=== PATIENT | male | born 1995 | race Asian ===

== ENCOUNTER 2018-09-19 20:10 | Emergency (ER) | payer OTHER ==
--- NOTE | 2018-09-19 21:29 | ED ---
Respiratory - HPI Summary HPI Summary: 23 year old presents with right sided pneumothoracic [facility] since yesterday. he had a left sided spontaneous pneumo 7 years ago the required a chest tube. no cough or fever. [facility] xray [facility] shows 30% right pneumo. denies any other symptoms. no injury. has no medical conditions. no hx of asthma or copd. is not a smoker. - History of Current Complaint Chief Complaint: EDShortnessOfBreath Stated Complaint: DIFFICULTY BREATHING Time Seen by Provider: 09/19/18 21:07 Pain Intensity: 0 Sputum Amount: None - Allergy/Home Medications Allergies/Adverse Reactions: Allergies Allergy/AdvReac Type Severity Reaction Status Date / Time No Known Allergies Allergy Verified 09/19/18 20:17 Home Medications: Home Medications NK [No Home Medications Reported] 09/19/18 [History Confirmed 09/19/18] PMH/Surg Hx/FS Hx/Imm Hx Endocrine/Hematology History: Denies: Hx Anticoagulant Therapy Respiratory History: Reports: Other Respiratory Problems/Disorders - pneumothoracic Denies: Hx Asthma Infectious Disease History: No Infectious Disease History: Denies: Traveled Outside the [place] in Last 30 Days - Social History Alcohol Use: None Substance Use Type: Reports: None Smoking Status (MU): Never Smoked Tobacco Review of Systems Negative: Fever Negative: Chest Pain Positive: Shortness Of Breath. Negative: Cough All Other Systems Reviewed And Are Negative: Yes Physical Exam Triage Information Reviewed: Yes Vital Signs On Initial Exam: Initial Vitals Temp Pulse Resp BP Pulse Ox 97.6 F 67 16 127/74 98 09/19/18 20:12 09/19/18 20:12 09/19/18 20:12 09/19/18 20:12 09/19/18 20:12 Vital Signs Reviewed: Yes Appearance: Positive: Well-Appearing Skin: Positive: Warm, Dry Head/Face: Positive: Normal Head/Face Inspection Eyes: Positive: Normal, Conjunctiva Clear ENT: Positive: Pharynx normal Respiratory/Lung Sounds: Positive: Breath Sounds Present, Decreased Breath Sounds - right Cardiovascular: Positive: Normal, RRR Abdomen Description: Positive: Nontender, Soft Bowel Sounds: Positive: Present Musculoskeletal: Positive: Normal Neurological: Positive: Normal Psychiatric: Positive: Normal Diagnostics - Vital Signs Vital Signs Temp Pulse Resp BP Pulse Ox 09/19/18 21:00 72 99 09/19/18 20:59 71 135/81 100 09/19/18 20:57 76 95 09/19/18 20:12 97.6 F 67 16 127/74 98 - Laboratory Result Diagrams: 09/19/18 21:36 09/19/18 21:36 Lab Statement: Any lab studies that have been ordered have been reviewed, and results considered in the medical decision making process. - Radiology chest Radiology Interpretation Completed By: ED Physician Summary of Radiographic Findings: pneumo Re-Evaluation - Re-Evaluation First Eval Re-Evaluation Time: 22:50 Comment: minimial pain. agrees with plan to go, o2 stat is 100. Disposition - Course Course Of Treatment: 23 year old presents with right sided pneumothoracic since yesterday. he had a left sided spontaneous pneumo 7 years ago the required a chest tube. chest xrays shows 30% right pneumo. on exam decreased breath sound heard on right. 02 stat 98-100. spoke with dr galeas who wants a repeat xray which still shows a pneumo. spoke again with dr galeas at 20:45am and dr galeas says 3 hour xray same as previous so can send home to follow up tomorrow. will have call office for xray tomorrow morning. gave strict return precautions. patient understand and agrees with plan. - Differential Dx - Cardiopulmonary Differential Diagnoses - Cardiopulmonary: Bronchitis, Chest Wall Pain, Pneumothorax - Diagnoses Provider Diagnoses: Pneumothorax on right Discharge - Sign-Out/Discharge Documenting (check all that apply): Patient Departure Patient Received Moderate/Deep Sedation with Procedure: No - Discharge Plan Condition: Stable Disposition: HOME Patient Education Materials: Spontaneous Pneumothorax (ED) Referrals: King Galeas MD [Medical Doctor] - Additional Instructions: call office at 8am dr Galeas, ask for chest xray order and appointment afterwards Take Tylenol or ibuprofen every 6 hours as needed for pain Return to ED if develop any worsening chest pain or shortness of breath or any new or worsening symptoms - Billing Disposition and Condition Condition: STABLE Disposition: Home
[2018-09-19 21:42] LABS: ABS Basophils 0 10^3/ul (0-0.2); ABS Eosinophils 0.1 10^3/ul (0-0.6); ABS Monocytes 0.5 10^3/ul (0-0.8); ABS Neutrophils 4.7 10^3/ul (1.5-7.7); ABS Nucleated RBC 0 10^3/ul; Hematocrit 46 % (42-52); Hemoglobin 15.2 g/dl (14.0-18.0); Lymphocyte % 27.3 %; Mean Corpuscular HGB Conc 33 g/dl (31-36); Mean Corpuscular Hemoglobin 31 pg (27-31); Mean Corpuscular Volume 92 fL (80-94); Mean Platelet Volume 8.4 fL (7.4-10.4); Nucleated Red Blood Cells % 0.1; Platelet Count 266 10^3/ul (150-450); Red Blood Count 4.97 10^6/ul (4.00-5.40); Red Cell Distribution Width 13 % (10.5-15); White Blood Count 7.4 10^3/ul (3.5-10.8)
[2018-09-19 21:51] LABS: INR 1.02 (0.77-1.02)
[2018-09-19 22:02] LABS: Albumin 4.9 g/dL (3.2-5.2); Albumin/Globulin Ratio 1.6 (1-3); BUN/Creatinine Ratio 13.5 (8-20); Calcium 9.9 mg/dL (8.6-10.3); EGFR African American 117.5 (>60); EGFR Non-African American 97.1 (>60); Potassium 4.3 mmol/L (3.5-5.0); Total Protein 7.9 g/dL (6.4-8.9)
[2018-09-19 23:03] VITALS: BP 116/68
== END 2018-09-19 23:07 | disposition home or self-care (01) ==
LOC: ED 20:10
DX: J93.11 Primary spontaneous pneumothorax (principal)
CPT/HCPCS: 36415; 71046; 80053; 85025; 85610; 99283

== ENCOUNTER 2018-09-27 13:22 | Inpatient (IN) | payer OTHER ==
[~2018-09-27 13:22] MED LIST: Buffered Lidocaine 1% SYRIN* 1 ML/SYRINGE INTRADERM ONE; Lactated Ringers 1000 ML Bag* 1,000 ML IV SCH; Sodium Citrate/Citric Acid* 15 ML UDC PO ONE
--- OUTSIDE RECORDS SUMMARY | 2018-09-27 13:25 | XMS REPORT | Continuity of Care Document ---
:1995 External Reference #:[id number] Author Name Radha Frank Care Team Providers Name Role Phone King Valles DO [facility] Care Team Information Director Camp Unavailable Payers Date Identification Numbers Payment Provider Subscriber Policy Number: [id number] [employer] Student [employer] Gerald Correa PayID: [id number] [address] [place] [address] Advance Directives Description No Information Available Problems Description No Information Family History Description No Information Available Social History Type Date Description Comments Sex Unknown Marital Status Single Lives With Roommate Occupation Student ETOH Use Rarely consumes alcohol Tobacco Use Start: Unknown Patient has never smoked Recreational Drug Use Denies Drug Use Smoking Status Reviewed: 09/20/18 Patient has never smoked Exercise Type/Frequency Exercises regularly Allergies, Adverse Reactions, Alerts Description No Known Drug Allergies Medications Description No Active Medications Immunizations Description No Information Available Vital Signs Date Vital Result Comment 09/20/2018 10:55am Height 71 inches 5'11" Weight 165.00 lb Heart Rate 68 /min BP Systolic 115 mmHg BP Diastolic 80 mmHg Respiratory Rate 16 /min Body Temperature 96.8 F BMI (Body Mass Index) 23.0 kg/m2 Results Description No Information Available Procedures Description No Information Available Encounters Description No Information Available Plan of Treatment 09/20/2018 - King Fox MD, [id number] Primary spontaneous pneumothoraxFollow [facility]ac[facility]
--- OUTSIDE RECORDS SUMMARY | 2018-09-27 13:25 | XMS REPORT | Continuity of Care Document ---
:1995 External Reference #:[id number] Author Name Radha Frank Care Team Providers Name Role Phone King Valles DO [facility] Care Team Information Project Safety Manager Unavailable Payers Date Identification Numbers Payment Provider Subscriber Policy Number: [id number] [employer] Student [employer] Gerald Correa PayID: [id number] [address] [place] [address] Advance Directives Description No Information Available Problems Description No Information Family History Description No Information Available Social History Type Date Description Comments Sex Unknown Marital Status Single Lives With Roommate Occupation Student ETOH Use Rarely consumes alcohol Tobacco Use Start: Unknown Patient has never smoked Recreational Drug Use Denies Drug Use Smoking Status Reviewed: 09/24/18 Patient has never smoked Exercise Type/Frequency Exercises regularly Allergies, Adverse Reactions, Alerts Description No Known Drug Allergies Medications Description No Active Medications Immunizations Description No Information Available Vital Signs Date Vital Result Comment 09/24/2018 11:44am Heart Rate 68 /min BP Systolic 120 mmHg BP Diastolic 80 mmHg Respiratory Rate 16 /min Body Temperature 97.5 F 09/20/2018 10:55am Height 71 inches 5'11" Weight 165.00 lb Heart Rate 68 /min BP Systolic 115 mmHg BP Diastolic 80 mmHg Respiratory Rate 16 /min Body Temperature 96.8 F BMI (Body Mass Index) 23.0 kg/m2 Results Description No Information Available Procedures Description No Information Available Encounters Description No Information Available Plan of Treatment Future Appointment(s):09/25/2018 10:30 am - Ruben Ortega M.D. at [facility]09/24/2018 - King Fox MD, [id number] Primary spontaneous pneumothoraxFollow up:monday with Dr Ortega
--- OUTSIDE RECORDS SUMMARY | 2018-09-27 13:25 | XMS REPORT | Continuity of Care Document ---
:1995 External Reference #:[id number] Author Name Radha Frank Care Team Providers Name Role Phone King Valles DO [facility] Care Team Information Chucking Machine Set Up Operator Unavailable Payers Date Identification Numbers Payment Provider Subscriber Policy Number: [id number] [employer] Student [employer] Gerald Correa PayID: [id number] [address] [place] [address] Advance Directives Description No Information Available Problems Description No Information Family History Description No Information Available Social History Type Date Description Comments Sex Unknown Marital Status Single Lives With Roommate Occupation Student ETOH Use Rarely consumes alcohol Tobacco Use Start: Unknown Patient has never smoked Recreational Drug Use Denies Drug Use Smoking Status Reviewed: 09/25/18 Patient has never smoked Exercise Type/Frequency Exercises regularly Allergies, Adverse Reactions, Alerts Description No Known Drug Allergies Medications Description No Active Medications Immunizations Description No Information Available Vital Signs Date Vital Result Comment 09/25/2018 10:34am Heart Rate 60 /min Respiratory Rate 16 /min Body Temperature 96.9 F 09/24/2018 11:44am Heart Rate 68 /min BP [...] Available Procedures Description No Information Available Encounters Type Date Location Provider Dx Diagnosis Office Visit 09/20/2018 Surgical King Fox, J93.11 Primary spontaneous 11[facility] pneum[facility] Plan of Treatment Future Appointment(s):09/27/2018 3:00 pm - Ruben Ortega M.D. at [facility]09/25/2018 - Ruben Ortega M.D.J93.11 Primary spontaneous pneumothoraxReferral:Ruben Ortega MD, Surgery,GeneralFollow up:OR
[2018-09-27] MEDS ORDERED: Sodium Citrate/Citric Acid* 15 ML UDC ONE (13:42)
[2018-09-27] MEDS ORDERED: ceFAZolin 2 GM PREMIX in ORs 2 GM/50 ML BAG IVPB ONE (13:42)
[2018-09-27] MEDS ORDERED: Buffered Lidocaine 1% SYRIN* 1 ML/SYRINGE INTRADERM ONE (14:04)
[2018-09-27] MEDS ORDERED: Bupivacaine 0.25% W/EPI* 10 ML SDV ONE (15:46)
[2018-09-27] MEDS ORDERED: Lidocaine 2% PF * 5 ML VIAL ONE (15:55)
[2018-09-27] MEDS ORDERED: Propofol* 10 MG/ML 20 ML BTL ONE ×2 (15:55→17:16)
[2018-09-27] MEDS ORDERED: fentaNYL* 50 MCG/ML 2 ML VIAL (100 MCG VIAL) ONE ×3 (15:55→17:24)
[2018-09-27] MEDS ORDERED: Midazolam* 1 MG/ML 2 ML VIAL (2 MG) ONE (15:55)
[2018-09-27] MEDS ORDERED: Rocuronium* 10 MG/ML VIAL ONE (15:56)
[2018-09-27] MEDS ORDERED: Benzocaine/Butamben/Tetracain (CETACAINE - SINGLE USE) 5 gm TOPICAL ONE (16:14)
[2018-09-27] MEDS ORDERED: Phenylephrine IV* 40 MCG/ML 10 ML SYRINGE ONE (16:51)
[2018-09-27] MEDS ORDERED: Ketorolac INJ* 30 MG/ML 1 ML VIAL ONE (17:00)
[2018-09-27] MEDS ORDERED: Ondansetron INJ* 2 MG/ML VIAL IV PRN (17:19)
[2018-09-27] MEDS ORDERED: HYDROmorphone INJ1* 1 MG/ML SYRINGE IV SLOW PU PRN (17:26)
[2018-09-27] MEDS: fentaNYL* 50 MCG/ML 2 ML VIAL (100 MCG VIAL) IV PRN ×2 (17:30→18:50)
[2018-09-27] MEDS ORDERED: Naloxone* 0.4 MG/ML 1 ML VIAL IV PRN (17:39)
[2018-09-27] MEDS ORDERED: Lactated Ringers 1000 ML Bag* 1,000 ML IV SCH (18:00)
[2018-09-27] MEDS: Ketorolac INJ* 30 MG/ML 1 ML VIAL IV SCH (20:13)
--- NOTE | 2018-09-27 23:17 | OP ---
CC: Ruben Ortega MD; [facility] OPERATIVE REPORT: DATE OF OPERATION: 09/27/18 DATE OF : 89 SURGEON: Ruben Ortega MD SHARE HOLDER: None. ANESTHESIOLOGIST: Dr. Recinos. ANESTHESIA: General anesthetic, local infiltration by the surgeon. PRE-OP DIAGNOSIS: Right pneumothorax. POST-OP DIAGNOSIS: Right pneumothorax. OPERATIVE PROCEDURE: Right video thoracoscopy with bleb resection and pleurodesis. DESCRIPTION OF PROCEDURE: The patient was supine on the operating room table. After adequate general anesthetic, compression stockings, Phyllis Hugger warmer, and intravenous antibiotics, double lumen int ubation was accomplished by Anesthesia. I performed bronchoscopy to confirm placement of the tube. He was then turned to the lateral decubitus position with the right chest up. The chest was prepped with antiseptic and draped in a sterile fashion. He had been appropriately padded and protected and secured to the table ahead of time. Axillary roll was then used. Proximally, the seventh interspace was entered after local anesthetic and a Thoracoport was placed. Inspection revealed no underlying injury. 5 mm sites were placed anterior and posterior to this. In spection of the pleural space revealed normal middle and lower lobes. The fissures were normal. The apex of the upper lobe had some chronic scarring and fibrosis consistent with the chronic bleb disea se. This area was stapled off using 60-mm reinforced purple load of the Endo JEFF stapler. Specimen was labeled apex of right lung and sent in formalin for pathologic evaluation. Mechanical pleurodesi s was carried out using the Bovie scratch pad, which was then retrieved. Everything was in good cond ition. Intercostal blocks were carried out under direct vision with about 2 to 3 mL of 0.25% Marcaine at each site over about 6 sites. A 32-Panamanian chest tube was placed at the larger incision, sutured at the skin using 2-0 Prolene. The small incisions were closed with 5-0 Vicryl followed by Steri-Str ips. Bulky gauze dressing was placed and the chest tube was hooked to a Pleur-evac suction and he wa s brought to Recovery. He tolerated the procedure well. There were no complications. Drain was 32- Panamanian chest tube. Sponge and instruments counts correct. Estimated blood loss was about 30 mL. [id number]/[facility] #: [id number]
[2018-09-28] MEDS: Ketorolac INJ* 30 MG/ML 1 ML VIAL IV SCH ×4 (01:29→20:33)
[2018-09-28] MEDS ORDERED: Lactated Ringers 1000 ML Bag* 1,000 ML IV SCH (08:22)
[2018-09-28] MEDS: Docusate CAP* 100 MG PO SCH (08:25)
--- NOTE | 2018-09-28 08:25 | PN ---
Progress Note - Progress Note Date of Service: 09/28/18 Note: POD#1 S/P VATS Afeb, VS OK Akhil po's, Voiding CT level 220 ml, serosang. Pain control good. CT no air leak Breathing easy, unlabored Dressings clean D/C suction from pleurevac await decreased drainage KVO
[2018-09-28] MEDS: oxyCODONE/Acetamin 5/325 MG* TAB PO PRN (11:35)
--- NOTE | 2018-09-28 15:14 | PN ---
Progress Note - Progress Note Date of Service: 09/28/18 Note: S: POD#1 after VATS with bleb resection. He reports pain at chest tube site which has required pain medication but otherwise is doing well. He is ambulating to the bathroom and tolerating normal diet without any nausea or vomiting. Patient denies chest pain other than at the tube site, shortness of breath or cough. Pleurevac suction was discontinued this morning and tube continues to drain. O: Vital Signs - 12 hr Temp Pulse Resp BP Pulse Ox 09/28/18 13:44 18 09/28/18 11:35 18 09/28/18 11:20 97.6 F 65 16 117/57 100 09/28/18 08:00 16 100 09/28/18 07:40 97.5 F 80 16 111/49 100 09/28/18 04:07 98.4 F 77 16 106/45 98 Intake & Output 09/28/18 09/28/18 09/28/18 06:59 14:59 22:59 Intake Total 1250 1355 Output Total 1660 1463 Balance -410 -108 PE: General: Sitting up in bed comfortably in no acute distress Heart: Regular rate and rhythm, S1 S2, no murmur Lungs: Dressings clean dry and in tact without erythema or swelling. 240 cc of serosanguineous fluid collected from chest tube, no air leak. Lungs clear to auscultation bilaterally Abdomen: Soft, non-distended, non-tender Extremities: No swelling A/P: Progressing as expected after VATS with bleb resection for spontaneous pneumothorax with stable vital signs and pain controlled with percocet and toradol. -Continue chest tube to water seal while awaiting decreased drainage -Continue pain management as ordered KELSEY MendesS
[2018-09-29] MEDS: Ketorolac INJ* 30 MG/ML 1 ML VIAL IV SCH ×3 (02:13→14:00)
[2018-09-29] MEDS: Docusate CAP* 100 MG PO SCH (08:24)
[2018-09-29] MEDS: oxyCODONE/Acetamin 5/325 MG* TAB PO PRN ×3 (12:36→23:41)
--- NOTE | 2018-09-29 19:45 | PN ---
Progress Note - Progress Note Date of Service: 09/29/18 Note: Surgery Progress Note S: Patient was seen this morning. He complained of having pain with movement at the right chest, at the site of his chest tube. He is tolerating a regular diet and is able to ambulate to the restroom. O: Vital Signs: Temp Pulse Resp BP Pulse Ox 98.5 F 76 17 118/66 98 09/29/18 19:23 09/29/18 19:23 09/29/18 19:37 09/29/18 19:23 09/29/18 19:23 Intake & Output 09/29/18 09/29/18 09/29/18 06:59 14:59 22:59 Intake Total 1480 Output Total 105 Balance -105 1480 Intake: Oral 1480 Output: Chest Tube #1 105 Other: Estimated Void Large Medium # Bowel Movements 1 # Voids 1 2 Physical exam: Chest: right chest incision c/d/i, right chest tube in place with serosanguinous fluid, no air leak. Total drainage for 24 hours 168cc A/P: 23 M POD 2 from right VATS, bleb resection and pleurodesis for R PTX. - Will plan to DC chest tube when output is less than 100cc for 24 hours - Continue toradol ATC and PRN dilaudid, percocet for pain - Regular diet
[2018-09-30] MEDS: oxyCODONE/Acetamin 5/325 MG* TAB PO PRN ×2 (06:05→14:55)
[2018-09-30] MEDS: Docusate CAP* 100 MG PO SCH (09:35)
--- NOTE | 2018-09-30 14:02 | PN ---
Progress Note - Progress Note Date of Service: 09/30/18 Note: Surgery Progress Note S: Patient still complains of pain from his chest tube. No other complaints. O: Vital Signs: Temp Pulse Resp BP Pulse Ox 98.1 F 73 18 110/61 96 09/30/18 07:27 09/30/18 07:27 09/30/18 08:47 09/30/18 07:27 09/30/18 07:27 Intake & Output 09/29/18 09/30/18 09/30/18 21:59 06:59 14:59 Intake Total 240 Output Total 0 Balance 240 Intake: Oral 240 Output: Chest Tube #1 Urine 0 Other: Estimated Void Large # Bowel Movements Chest: right chest tube in place, s/s fluid in pleurovac and tubing. No blood clots evident. From yesterday, 70cc in pleurovac A/P: 23 M POD 3 from right VATS. - I removed chest tube today - Follow up chest x ray does not show PTX, awaiting final read - Plan to discharge today and follow up with Dr. Ortega in the office in 1 week
[2018-09-30 14:30] VITALS: BP 107/62
--- NOTE | 2018-09-30 22:01 | DS ---
DISCHARGE SUMMARY: DATE OF ADMISSION: 09/27/18 DATE OF DISCHARGE: 09/30/18 SERVICE: General Surgery. ATTENDING SURGEON: Dr. Ortega, Dr. Rosette Corey. ADMISSION DIAGNOSIS: Recurrent right pneumothorax. DISCHARGE DIAGNOSIS: Recurrent right pneumothorax. OPERATION TITLE: Right video-assisted thoracoscopic surgery and pleurodesis. HOSPITAL COURSE: Mr. Correa is a 23-year-old gentleman with a history of recurrent right pneumothorax. He underwent an elective right VATS and right blebectomy with pleurodesis with Dr. Ortega on 09/27/18. Postoperatively, his hospital course was uneventful. By the day of discharge, on postoperative day # 3, his chest tube output had dropped to approximately 70 cc over the last 24 hours and was serosanguineous in appearance. The chest tube was removed on the day of discharge and postop chest tube removal on chest x-ray showed a suggestion of minimal right apical pneumothorax and pleural fluid superimposed at the level of the posterior segment of the second rib. However, on close examination of the chest x-ray, this appeared to be extremely minimal and the patient was saturating at 98% O2 on room air and had no complaints. Therefore, he was determined to be able to be discharged home today. At discharge, he was comfortable. He was tolerating regular diet and he could ambulate without difficulty. PHYSICAL EXAMINATION ON DISCHARGE: Right chest tube was pulled without difficulty. Incisions are clean, dry, and intact on the right chest wall. DISCHARGE MEDICATIONS: Percocet 5/325 mg p.o. q.6 hours p.r.n. for severe pain. DISCHARGE INSTRUCTIONS: The patient was given a printed handout with discharge instructions and was told to follow up with Dr. Ortega in 1 week in office to remove the skin sutures as well as to remove the dressings. He was told to avoid heavy lifting or strenuous exercise throughout these 2 to 3 weeks. CONDITION: Good. DISPOSITION: To home. [id number]/[facility] #: [id number] MTDD
== END 2018-09-30 16:00 | disposition home or self-care (01) | DRG 165 ==
LOC: AA 13:22 → SSU 19:36
PROVIDERS: ADMIT Surgery; ATTEND Surgery
PROC: 0B5N4ZZ Destruction of Right Pleura, Percutaneous Endoscopic Approach (ICD-10-PCS; 2018-09-27)
PROC: 0W9940Z Drainage of Right Pleural Cavity with Drainage Device, Percutaneous Endoscopic Approach (ICD-10-PCS; 2018-09-27)
PROC: 0BBC4ZZ Excision of Right Upper Lung Lobe, Percutaneous Endoscopic Approach (ICD-10-PCS; principal; 2018-09-27 15:15)
DX: J93.11 Primary spontaneous pneumothorax (principal); Z82.49 Family history of ischemic heart disease and other diseases of the circulatory system
CPT/HCPCS: 71045; 88307; 90686; A9270-GY; J0690; J1885; J2250; J2704; J3010